=== PATIENT | male | born 1980 | race African-American/Black ===

== ENCOUNTER 2021-02-09 20:38 | Emergency (ER) | payer MEDICAID ==
[~2021-02-09] VITALS: Ht 180.3 cm; Wt 93.0 kg
[~2021-02-09 20:38] MED LIST: CEPH500T PO; NAPR-681 PO; SULF1TAB48 PO; TRAM50TA3 PO
[2021-02-10] MEDS ORDERED: IPRATROPIUM BROMIDE (0.02%) 0.5MG/2.5ML NEB HHN STA (00:49)
[2021-02-10] MEDS ORDERED: METHYLPREDNISOLONE SOD SUCC 125 MG/2 ML VIAL IM STA (00:49)
[2021-02-10] MEDS ORDERED: ALBUTEROL (0.083%) 2.5MG/3ML NEB HHN STA (00:49)
[2021-02-10] MEDS ORDERED: ALBU05 NEB (03:05)
[2021-02-10] MEDS ORDERED: ALBU90AE INH (03:05)
[2021-02-10] MEDS ORDERED: P20 MT (03:05)
[2021-02-10 03:13] VITALS: BP 154/87
== END 2021-02-10 03:14 | disposition home or self-care (01) ==
LOC: ER 20:38
DX: J45.901 Unspecified asthma with (acute) exacerbation (principal); Z79.51 Long term (current) use of inhaled steroids
CPT/HCPCS: 93005; 94644; 96372; 99285; J2930; Z7610

== ENCOUNTER 2022-01-16 14:50 | Emergency (ER) | payer MEDICAID ==
[~2022-01-16] VITALS: Ht 180.3 cm; Wt 91.0 kg
[~2022-01-16 14:50] MED LIST changes: +ALBU05 NEB; +ALBU90AE INH; +P20 MT
[2022-01-16 15:10] VITALS: BP 146/100
== END 2022-01-16 16:20 | disposition left against medical advice (07) ==
LOC: ER 14:50
DX: Z53.21 Procedure and treatment not carried out due to patient leaving prior to being seen by health care provider (principal)
CPT/HCPCS: 99281

== ENCOUNTER 2022-11-06 15:00 | Emergency (ER) | payer MEDICAID ==
[~2022-11-06] VITALS: Ht 185.4 cm; Wt 100.0 kg
[2022-11-06 15:03] VITALS: BP 119/65; PULSE 108; RESP 16; TEMP 97.8; O2SAT 94
[2022-11-06] MEDS ORDERED: SODIUM CHLORIDE 0.9% 1,000 ML IV ONE (15:15)
== END 2022-11-06 17:28 | disposition left against medical advice (07) ==
LOC: ER 15:00
DX: F10.129 Alcohol abuse with intoxication, unspecified (principal); R45.1 Restlessness and agitation; Z79.899 Other long term (current) drug therapy; Y90.0 Blood alcohol level of less than 20 mg/100 ml
CPT/HCPCS: 99283; J7030